=== PATIENT | female | born 1955 | race Asian ===

== ENCOUNTER 2016-12-05 10:02 | Day surgery (SDC) | payer OTHER ==
[~2016-12-05 10:02] MED LIST: CARAFATE1 G2 PO; DOXYCYCLINE PO; GLUCOPHAGE850 M1 PO; NORCO 5-325 TA1 EACH PO; SIMVASTATIN10 M1 PO; TARCEVA PO; VIBRAMYCIN100 M1 PO; ZOCOR10 M1 PO
[2016-12-05 11:38] LABS: BASO % 0.4 % (0-2); EOS % 2.9 % (0-7); EOSINOPHIL ABSOLUTE COUNT 0.2 tho/cmm (0.0-0.7); HCT-HEMATOCRIT 37.8 % (34.0-49.0); HGB-HEMOGLOBIN 12.6 gm/dl (12.0-15.5); IMMATURE GRANULOCYTES ABSOLUTE 0.02 tho/cmm (0-0.03); IMMATURE GRANULOCYTES PERCENT 0.3 % (0-0.3); LYMPH % 19.7 % (20-45); LYMPH ABSOLUTE COUNT 1.4 tho/cmm (0.8-4.5); MCH (MEAN CORPUSCULAR HGB) 29.9 pg (28.0-32.0); MCHC MEAN CORPUSCULAR HGB CONC 33.3 % (32.0-36.0); MCV (MEAN CELL VOLUME) 89.8 fl (82.0-96.0); MEAN PLATELET VOLUME 9.9 cmc (9.4-12.4); MONO % 13.4 % (0-12); NEUTROPHIL ABSOLUTE COUNT 4.6 tho/cmm (1.6-8.0); NEUTROPHIL-AUTOMATED 4.6 tho/cmm (1.6-8.0); NEUTROPHILS % 63.3 % (40-80); PLATELET COUNT 201 tho/cmm (150-450); RED BLOOD COUNT 4.21 mil/cmm (4.00-5.20); RED CELL DISTRIBUTION WIDTH 14.4 % (12.4-16.4); WHITE BLOOD COUNT 7.3 tho/cmm (4.0-10.0)
[2016-12-05 11:44] LABS: INR 0.9 INR (0.9-1.1); PROTHROMBIN TIME 10.7 SECONDS (9.0-13.6)
== END 2016-12-05 15:15 ==
LOC: CTSCAN 10:02 → SHSA 10:03
PROVIDERS: Anesthesiology
PROC: 0BBC3ZX Excision of Right Upper Lung Lobe, Percutaneous Approach, Diagnostic (ICD-10-PCS; principal; 2016-12-05)
DX: C34.11 Malignant neoplasm of upper lobe, right bronchus or lung (principal); Z79.899 Other long term (current) drug therapy
CPT/HCPCS: J3010; J7030